=== PATIENT | male | born 1970 | race Caucasian/White ===

== ENCOUNTER 2018-03-22 14:21 | Observation (INO) | payer SELFPAY ==
--- NOTE | 2018-03-22 15:00 | RAD ---
PORTABLE AP CHEST RADIOGRAPH: Date: 03-22-18 History: Chest pain, dizziness. Comparison: None available. FINDINGS: Cardiac silhouette and pulmonary vasculature are within normal limits. Lungs are clear. Osseous struc tures are intact. IMPRESSION: No acute cardiopulmonary process. POS: [facility]
[2018-03-22 15:17] LABS: #Basophils 0.1 thou/uL (0.0-0.2); #Eosinphils 0.1 thou/uL (0.0-0.7); #Lymphocytes 1.9 thou/uL (1.20-3.40); #Monocytes 0.7 thou/uL (0.11-0.59); #Neutrophils 12.1 thou/uL (1.40-6.50); %Basophils 0.4 % (0.0-1.0); %Eosinophils 0.9 % (0.0-10.0); %Lymphocytes 12.7 % (21.0-51.0); %Monocytes 4.6 % (0.0-10.0); %Neutrophils 81.4 % (42.0-75.0); Hemoglobin 15.8 g/dL (14.0-18.0); Mean Corpuscular HGB CONC 33.7 g/dL (32.0-36.0); Mean Corpuscular Hemoglobin 29.9 pg (27.0-31.0); Mean Corpuscular Volume 88.5 fL (78.0-98.0); Mean Platelet Volume 6.8 fL (7.4-10.4); Platelet Count 299 thou/uL (130-400); Red Blood Cell (RBC) Count 5.29 mill/uL (4.70-6.10); White Blood Cell (WBC) Count 14.8 thou/uL (4.8-10.8)
[2018-03-22 15:33] LABS: ALT (SGPT) 19 U/L (8-55); AST (SGOT) 18 U/L (5-34); Albumin 4.1 g/dL (3.5-5.0); Alkaline Phosphatase 63 U/L (40-150); Anion Gap 9 mmol/L (10-20); BUN (Urea Nitrogen) 9 mg/dL (8.9-20.6); Bilirubin, Total 0.6 mg/dL (0.2-1.2); Calc. Creatinine Clearance 0 mL/min (70-130); Calcium 8.9 mg/dL (7.8-10.44); Carbon Dioxide 25 mmol/L (22-29); Chloride 104 mmol/L (98-107); Estimated GFR-MDRD 85; Globulin 2.8 g/dL (2.4-3.5); Glucose 140 mg/dL (70-105); Lipase 7 U/L (8-78); Potassium 3.8 mmol/L (3.5-5.1); Protein, Total 6.9 g/dL (6.0-8.3); Sodium 134 mmol/L (136-145)
[2018-03-22 15:38] LABS: CKMB 0.9 ng/mL (0-6.6); Troponin I Less than 0.010 ng/mL (< 0.028)
[2018-03-22 16:22] LABS: Bilirubin Negative (Negative); Blood, Urine Negative (Negative); Clarity CLEAR (Clear); Glucose, Urine (Dipstick) 250 mg/dL (Negative); Leukocyte Negative (Negative); Nitrite Negative (Negative); Protein, Urine (Dipstick) Trace mg/dL (Neg-Trace); Specific Gravity, Urine 1.022 (1.002-1.036); Urobilinogen 0.2 mg/dL (0.2-1.0); pH, Urine 5.5 (5.0-9.0)
--- NOTE | 2018-03-22 16:22 | CT ---
CT HEAD NONCONTRAST DATE: 03/22/18 HISTORY: Altered mental status. FINDINGS: No comparison. There is no evidence of acute intracranial hemorrhage or infarct. The ventricles appear normal in siz e, shape, and position. There is no mass effect or shift of midline structures. Mild mucosal thickeni ng and fluid within the partially visualized maxillary sinuses and ethmoid air cells. IMPRESSION: No acute intracranial abnormalities are demonstrated. POS: [facility]
[2018-03-22] MEDS ORDERED: Ketorolac Tromethamine 30 MG/ML VIAL ONE (16:33)
[2018-03-22 18:59] LABS: Troponin I Less than 0.010 ng/mL (< 0.028)
[2018-03-22] MEDS ORDERED: Acetaminophen 325 MG TAB PO PRN ×2 (19:06→19:34)
[2018-03-22] MEDS ORDERED: Ondansetron ODT 4 MG TAB SL PRN (19:06)
[2018-03-22] MEDS ORDERED: Ondansetron PF 4 MG/2 ML Vial IVP PRN ×2 (19:06→19:34)
[2018-03-22] MEDS ORDERED: Sodium Chloride 0.9% 1,000 ML IV SCH (19:15)
[2018-03-22] MEDS ORDERED: Guaifenesin DM 100-10/5 ML UDCUP PO PRN (19:34)
[2018-03-22 19:48] VITALS: BMI 29.0
[2018-03-22] MEDS: Sodium Chloride 0.9% 1,000 ML IV SCH (20:31)
[2018-03-22] MEDS: Famotidine 20 MG TAB PO SCH (20:37)
--- NOTE | 2018-03-23 01:33 | HP ---
REASON FOR ADMISSION: Severe dehydration, possible upper respiratory infection. 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 He tried to lie down, but was not feeling right. He tried to walk around his [employer] [place] and felt very hot and sweaty. He turned on his a.c. in the truck and was still sweating. He tried to lie down again, but started to throw up. He vomited multiple times. The patient managed to call 911 before he collapsed. He has had some epigastric pain from retching. No complaints of chest pain, palpitation, PND, or orthopnea. The patient states he has had upper respiratory infection 3 days back and thought it is a viral infection. Currently, has some dry cough, but no expectoration as such. PAST MEDICAL AND SURGICAL HISTORY: He has had right arm surgery done in 1998 for fracture. CURRENT MEDICATIONS: None. ALLERGIES: No known drug allergies. Questionable NORCO, which causes itching. PERSONAL HISTORY: Smokes half pack a day and has been doing so for the last 20 days or so. Very rare alcohol use. Does not abuse drugs. FAMILY HISTORY: Mother of cervical cancer at the age of 39 years. Father is living and healthy. Power of tax attorney is his father. REVIEW OF SYSTEMS: The following complete review of systems was negative, unless otherwise mentioned in the HPI or below: Constitutional: Weight loss or gain, ability to conduct usual activities. Skin: Rash, itching. Eyes: Double vision, pain. ENT/Mouth: Nose bleeding, neck stiffness, pain, tenderness. Cardiovascular: Palpitations, dyspnea on exertion, orthopnea. Respiratory: Shortness of breath, wheezing, cough, hemoptysis, fever or night sweats. Gastrointestinal: Poor appetite, abdominal pain, heartburn, nausea, vomiting, constipation, or diarrhea. Genitourinary: Urgency, frequency, dysuria, nocturia. Musculoskeletal: Pain, swelling. Neurologic/Psychiatric: Anxiety, depression. Allergy/Immunologic: Skin rash, bleeding tendency. PHYSICAL EXAMINATION: GENERAL: The patient is a 47-year-old male who is currently not in any acute distress. VITAL SIGNS: Blood pressure 110/52, pulse 74 per minute, respiratory rate 16 per minute, temperature 97.6 degrees Fahrenheit, saturating 99% on room air. NECK: Supple, no elevated JVD. HEENT: Eyes: Extraocular muscles intact. Pupils reacting to light. Oral cavity mucous membranes are dry. No exudates or congestion. CARDIOVASCULAR: S1, S2 heard. Regular rhythm. RESPIRATORY: Air entry 1+ bilaterally. No rales or rhonchi. ABDOMEN: Soft, bowel sounds heard. No tenderness, rigidity, or guarding. EXTREMITIES: No peripheral edema or calf tenderness. VASCULAR SYSTEM: Peripheral pulses 1+ bilateral. No ischemic ulcerations or gangrene. CENTRAL NERVOUS SYSTEM: No gross focal deficits noted. Patient is alert, awake , oriented well. PSYCHIATRIC: The patient's mood is euthymic. No hallucinations or delusions. LABORATORY AND X-RAY FINDINGS: White count is 14, H&H 15 and 46, platelet count 299 with 81% neutrophils. Sodium 134, BUN is 9, creatinine 0.9, serum glucose 140. Troponin x2 negative. CK-MB 0.9, albumin is 4.1. Urine shows 250 mg per deciliter of glucose and 40 mg per deciliter of ketones. CT brain, no acute intracranial abnormalities. Chest x-ray, no acute cardiopulmonary abnormalities. EKG shows normal sinus rhythm at 73 beats per minute. There is poor R-wave progression. CLINICAL IMPRESSION AND PLAN: The patient will be under observation on telemetry for [id number] dehydration, recent upper respiratory infection and it is unclear if he has secondary bacterial infection. He will be on normal saline at 100 mL per hour and will place him empirically on Levaquin. His elevated white count likely is due to margination and we will closely monitor his vital signs and CBC in the morning. Patient also has serum glucose of 140 and UA is positive for 250 mg per deciliter of glucose. We will obtain hemoglobin A1c in the morning. We will continue to closely monitor him on telemetry and if patient is not feeling dizzy and is able to ambulate well, he can be discharged safely in the morning. [facility]
[2018-03-23 05:11] LABS: #Eosinphils 0.1 thou/uL (0.0-0.7); #Lymphocytes 2.4 thou/uL (1.20-3.40); #Monocytes 0.6 thou/uL (0.11-0.59); #Neutrophils 6.3 thou/uL (1.40-6.50); %Basophils 0.3 % (0.0-1.0); %Eosinophils 1.2 % (0.0-10.0); %Lymphocytes 25.6 % (21.0-51.0); %Monocytes 6.3 % (0.0-10.0); %Neutrophils 66.7 % (42.0-75.0); Hemoglobin 15.2 g/dL (14.0-18.0); Hemoglobin A1c 5.2 % (4.0-6.0); Mean Corpuscular HGB CONC 32.9 g/dL (32.0-36.0); Mean Corpuscular Hemoglobin 29.6 pg (27.0-31.0); Mean Corpuscular Volume 89.9 fL (78.0-98.0); Mean Platelet Volume 6.6 fL (7.4-10.4); Platelet Count 291 thou/uL (130-400); RBC Distribution Width 12.2 % (11.5-14.5); Red Blood Cell (RBC) Count 5.14 mill/uL (4.70-6.10); White Blood Cell (WBC) Count 9.4 thou/uL (4.8-10.8)
[2018-03-23 05:22] LABS: Anion Gap 5 mmol/L (10-20); BUN (Urea Nitrogen) 9 mg/dL (8.9-20.6); Calc. Creatinine Clearance 137 mL/min (70-130); Carbon Dioxide 28 mmol/L (22-29); Chloride 107 mmol/L (98-107); Estimated GFR-MDRD 87; Glucose 93 mg/dL (70-105); Sodium 136 mmol/L (136-145)
[2018-03-23] MEDS: Sodium Chloride 0.9% 1,000 ML IV SCH (06:03)
[2018-03-23 08:04] VITALS: BP 130/72; TEMP 97.9
[2018-03-23] MEDS: Famotidine 20 MG TAB PO SCH (08:58)
[2018-03-23] MEDS ORDERED: Enoxaparin Sodium 40 MG/0.4 ML SYRINGE SC SCH (09:00)
--- NOTE | 2018-03-23 13:00 | DIS ---
PRIMARY CARE PHYSICIAN: None. DATE OF ADMISSION: 03/22/2018 DATE OF DISCHARGE: 03/23/2018 CONSULTATIONS: None. CODE STATUS: Full. PROCEDURES: The patient had a brain CT on 03/22/2018 which showed no acute intracranial abnormalities. Patient had a chest x-ray on 03/22/2018 which showed no acute cardiopulmonary process. DISCHARGE DIAGNOSES: 1. Presyncope. 2. Dehydration. 3. Nausea and vomiting, resolved. 4. Upper respiratory infection. REVIEW OF SYSTEMS: CONSTITUTIONAL: Historian denies chills, denies fever. ENT: Denies rhinorrhea, denies sore throat. CARDIOVASCULAR: Denies chest pain. RESPIRATORY: Reports a mild cough, denies shortness of breath. GI: Does report some nausea, vomiting yesterday, resolved. Denies abdominal pain, diarrhea. MUSCULOSKELETAL: Denies back pain. Denies fall injury. SKIN: Denies rash or skin changes. NEUROLOGIC: Reports some dizziness yesterday. Denies headache. PHYSICAL EXAMINATION: VITAL SIGNS: Temperature 98.1, pulse is 81, respirations are 16, pulse oximetry is 95 on room air, blood pressure 124/88. CONSTITUTIONAL: The patient is pacing in the room, in no acute distress, well- appearing. ENT: Mucous membranes are moist. NECK: Trachea is midline. Normal range of motion. RESPIRATORY: Breath sounds are clear. No rhonchi or rales are noted. CARDIOVASCULAR: S1, S2. No gallops. ABDOMEN: Now nontender. Bowel sounds normal x4 quadrants. No distention. BACK: Normal range of motion. No tenderness. NEUROLOGIC: The patient is oriented to person, place and time. Speech is normal. Gait is normal. SKIN: Dry, warm and normal. HOSPITAL COURSE: A 47-year-old male who presented to the ER on 03/22/2018 after experiencing dizziness, nausea, vomiting, diaphoresis. He reports vomiting multiple times, reported some epigastric pain from retching. Denies any complaints of chest pain or shortness of breath, any palpitations. He states he had an upper respiratory infection 3 days ago, has a dry cough. Denies any postnasal drip or sinus tenderness. While the patient was admitted for observation he was given Levaquin and IV fluids. Today, the patient is feeling much better. He is hungry and would like to be discharged home. MEDICATIONS: Patient will be discharged on Levaquin 500mg po daily x4 days ALLERGY: Hydrocodone DISCHARGE CONDITION: Stable DISCHARGE TO: Home REFERRAL: Patient was educated on need for PCP and should f/u with them within one week DICTATION MTDD
== END 2018-03-23 11:45 | disposition home or self-care (01) ==
LOC: ERS 14:21 → 2SW 18:47
PROVIDERS: ADMIT Internal Medicine; ATTEND Internal Medicine
DX: R55 Syncope and collapse (principal); E86.0 Dehydration; J06.9 Acute upper respiratory infection, unspecified
CPT/HCPCS: 36415; 70450; 71045; 80048; 80053; 81003; 82553; 83036; 83690; 84484; 85025; 90471; 90686; 93005; 96361; 96372; 96374; G0008; G0378; J1650; J1885